=== PATIENT | female | born 1960 | race Caucasian/White ===

== ENCOUNTER → 2017-01-22 | Outpatient (CLI) | payer OTHER ==
[~2017-01-22] MED LIST: SIMV20TA2 PO; lisinopril
[2017-01-22 12:40] LABS: ADD SCAN DIFF NO
[2017-01-22 12:46] LABS: BASOPHILS % 0.3 % (0.0-2.0); EOSINOPHILS # 0.1 10^3/ul (0.0-0.5); EOSINOPHILS % 0.9 % (0.0-7.0); HEMATOCRIT 42.9 % (37.0-47.0); HEMOGLOBIN 14.4 g/dl (12.0-16.0); LYMPHOCYTES # 2.2 10^3/ul (0.8-2.9); LYMPHOCYTES % 21.8 % (15.0-51.0); MEAN CORPUSCULAR HEMOGLOBIN 31.3 pg (29.0-33.0); MEAN CORPUSCULAR HGB CONC 33.6 g/dl (32.0-37.0); MEAN CORPUSCULAR VOLUME 93.3 fl (82.0-101.0); MEAN PLATELET VOLUME 10.3 fl (7.4-10.4); MONOCYTE # 0.4 10^3/ul (0.3-0.9); MONOCYTES % 3.6 % (0.0-11.0); NEUTROPHIL # 7.2 10^3/ul (1.6-7.5); NEUTROPHILS % 73.1 % (39.0-77.0); PLATELET COUNT 328 10^3/UL (140-415); RED CELL DISTRIBUTION WIDTH 12.7 % (11.5-14.5); WHITE BLOOD COUNT 9.9 10^3/ul (4.8-10.8)
== END | disposition home or self-care (01) ==
LOC: LAB 12:05
PROVIDERS: ATTEND Internal Medicine
DX: D68.0 Von Willebrand disease (principal); M19.90 Unspecified osteoarthritis, unspecified site; C18.9 Malignant neoplasm of colon, unspecified
CPT/HCPCS: 85025; 85576

== ENCOUNTER 2017-11-15 08:00 | Outpatient (CLI) | END 2017-11-15 23:59 | disposition home or self-care (01) ==

== ENCOUNTER 2018-11-25 07:59 | Day surgery (SDC) | payer OTHER ==
[2018-11-25] VITALS (11 sets, daily range): BP systolic 93–114; BP diastolic 51–74; PULSE 76–88; RESP 10–21; Ht 162.6 cm; Wt 63.7 kg
[~2018-11-25] VITALS: Ht 162.6 cm; Wt 63.7 kg
[2018-11-25] MEDS ORDERED: AMLO5TAB4 PO (08:28)
[2018-11-25] MEDS ORDERED: FLUT1AER INHALATION (08:31)
[2018-11-25] MEDS ORDERED: ATOR20TA38 PO (08:31)
[2018-11-25] MEDS ORDERED: ZOLP10TA5 PO (08:32)
[2018-11-25] MEDS ORDERED: DULO30CA47 PO (08:32)
[2018-11-25] MEDS ORDERED: TIOT18CA INHALATION (08:33)
[2018-11-25] MEDS ORDERED: TIZA4TAB PO (08:33)
[2018-11-25] MEDS ORDERED: ALBU18HF INHALATION (08:33)
[2018-11-25] MEDS ORDERED: TREX50 PO (08:34)
[2018-11-25] MEDS ORDERED: MONT10TA24 PO (08:35)
[2018-11-25] MEDS ORDERED: LOSA100T15 PO (08:35)
[2018-11-25] MEDS ORDERED: GABA-526 PO (08:36)
[2018-11-25] MEDS ORDERED: MULT-344 PO (08:37)
[2018-11-25] MEDS ORDERED: FOLI-49 PO (08:37)
[2018-11-25] MEDS ORDERED: CHOL100062 PO (08:38)
--- NOTE | 2018-11-25 09:13 | HPN ---
Date/Time of Note Date/Time of Note DATE: 11/25/18 TIME: 09:13 Interval H&P Admission Note Pt. seen H&P reviewed: No system changes VALERIE CAMPBELL DPM Nov 25, 2018 09:13
[2018-11-25] MEDS ORDERED: LIDOCAINE 2% (MDV) 20 ML INJ ONE (09:18)
[2018-11-25] MEDS ORDERED: BUPIVACAINE 0.5% (SDV) 30 ML INJ ONE (09:18)
[2018-11-25] MEDS ORDERED: POLYMYXIN/BACITRACIN 1L IRRIG ONE (09:18)
[2018-11-25] MEDS ORDERED: MIDAZOLAM 1 MG/ML 2 ML INJ ONE ×3 (09:31→09:41)
[2018-11-25] MEDS ORDERED: FENTAnyl 50 MCG/ML VIAL ONE (09:36)
[2018-11-25] MEDS ORDERED: CEFAZOLIN 1 GM INJ ONE (09:39)
[2018-11-25] MEDS ORDERED: PROPOFOL 20 ML ONE (09:45)
--- NOTE | 2018-11-25 09:58 | PREAC ---
Date/Time of Note Date/Time of Note DATE: 11/25/18 TIME: 09:43 Anesthesia Eval and Record Evaluation Time Pre-Procedure Interview DATE: 11/25/18 TIME: 09:43 Age 58 Sex female NPO: 8 hrs Preoperative diagnosis Left dorsal foot mass Planned procedure excision left dorsal foot mass Past Medical History Past Medical History: Includes Cardio: HTN GI: Other (H/O colon cancer with Sx/XRT/Chemo Tx in 2004) Heme: Other (VanWillebrand disease) Surgery & Anesthesia Issues No known issue Meds Anticoagulation: No Beta Abdullahi within 24 hr: Yes Reported Medications Cholecalciferol* (Vitamin D3*) 1,000 Unit Tablet, 1000 UNIT PO DAILY, TAB 11/25/18 Folic Acid* (Folic Acid*) 1 Mg Tablet, 1 MG PO DAILY, TAB 11/25/18 Multivits,Ca,Minerals/Iron/Fa (WOMEN'S DAILY CAPLET) 1 Each Tablet, 1 EACH PO DAILY, TAB 11/25/18 Gabapentin* (Gabapentin*) 600 Mg Tablet, 2400 MG PO QID, #180 TAB 11/25/18 Losartan Potassium* (Losartan Potassium*) 100 Mg Tablet, 100 MG PO DAILY, TAB 11/25/18 Montelukast Sodium* (Montelukast Sodium*) 10 Mg Tablet, 10 MG PO QHS, #30 TAB 11/25/18 Naltrexone Hcl (Trexan) 50 Mg Tab, 100 MG PO DAILY, TAB 11/25/18 Tiotropium [place]* (Spiriva*) 18 Mcg Cap.w.dev, 1 CAP INHALATION DAILY, #30 CAP 11/25/18 Tizanidine Hcl* (Tizanidine Hcl*) 4 Mg Tablet, 4 MG PO Q6H PRN for SPASTICITY, TAB 11/25/18 Albuterol Sulfate* (Ventolin HFA*) 18 Gm Hfa.aer.ad, 2 PUFF INHALATION Q4H, #1 INHALER 11/25/18 Zolpidem Tartrate* (Zolpidem Tartrate*) 10 Mg Tablet, 10 MG PO QHS PRN for INSOMNIA, #30 TAB 11/25/18 Duloxetine Hcl* (Duloxetine Hcl*) 30 Mg Capsule.dr, 30 MG PO DAILY, #30 CAP 11/25/18 Fluticasone-Vilanterol (Breo Ellipta Inhaler) 100-25 Mcg/Actuation Aer.pow.ba, 1 PUFF INHALATION DAILY, #1 INHALER 11/25/18 Atorvastatin Calcium* (Atorvastatin Calcium*) 20 Mg Tablet, 20 MG PO QHS, #30 TAB 11/25/18 Amlodipine Besylate* (Norvasc*) 5 Mg Tablet, 5 MG PO DAILY, TAB 11/25/18 Discontinued Reported Medications [lisinopril] No Conflict Check 10/31/14 Simvastatin (Simvastatin) 20 Mg Tablet, 20 MG PO HS, TAB 06/09/14 Meds reviewed: Yes Allergies Coded Allergies: aspirin (Verified Allergy, Unknown, PT IS A BLEEDER, 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) Allergies Reviewed: Yes Labs/Studies Labs Reviewed: Reviewed by anesthesiologist test: N/A Studies: ECG, CXR Pre-procedure Exam Last vitals Vital Signs Date Temp Pulse Resp B/P (MAP) Pulse Ox O2 O2 Flow FiO2 Time Delivery Rate 11/25/18 98.9 88 18 112/74 98 09:01 (87) Airway: Adequate mouth opening, Adequate thyromental dist Mallampati: Mallampati I Teeth: Abnormal (most teeth missing, some lower teeth - not looses) Lung: Normal Heart: Normal ASA Physical Status ASA physical status: 3 Emergency: None Planned Anesthetic General/MAC: MAC Nerve block: Other (by surgeon) Planned Pain Management Local by surgeon Pre-operative Attestations Prior to commencing anesthesia and surgery, the patient was re-evaluated, there was verification of: *The patient's identity *The results of appropriate recent lab work and preoperative vital signs *The above evaluation not changing prior to induction *Anesthetic plan, risk benefits, alternative and complications discussed with patient/family; questions answered; patient/family understands, accepts and wishes to proceed. Amanda Foley Nov 25, 2018 09:58
[2018-11-25] MEDS ORDERED: METOCLOPRAMIDE 10 MG INJ IV PRN (10:00)
[2018-11-25] MEDS ORDERED: KETOROLAC 15 MG INJ IV PRN (10:00)
[2018-11-25] MEDS ORDERED: hydrALAzine 20 MG INJ IV PRN (10:00)
[2018-11-25] MEDS ORDERED: OXYCODONE/ACETAMINOPHEN (5/325) TAB PO PRN (10:00)
[2018-11-25] MEDS ORDERED: DIPHENHYDRAMINE 50 MG INJ IV PRN (10:00)
[2018-11-25] MEDS ORDERED: ONDANSETRON 4 MG INJ IV PRN (10:00)
[2018-11-25] MEDS ORDERED: FENTAnyl 50 MCG/ML VIAL IV PRN (10:00)
[2018-11-25] MEDS ORDERED: morphine (1 MG/ML) 10ML SYRINGE IV PRN (10:00)
[2018-11-25] MEDS ORDERED: MEPERIDINE 25 MG INJ IV PRN (10:00)
[2018-11-25] MEDS ORDERED: LABETALOL HCL 20MG INJ IV PRN (10:00)
[2018-11-25] MEDS ORDERED: LORAZEPAM 2 MG INJ IV PRN (10:00)
[2018-11-25] MEDS ORDERED: ALBUTEROL 0.083% (NEB) 2.5 MG/3 ML AMP HHN PRN (10:00)
[2018-11-25] MEDS ORDERED: HYDROmorphONE 1 MG/5 ML IV SYRINGE IV PRN (10:00)
--- NOTE | 2018-11-25 10:09 | OPR ---
Date/Time of Note Date/Time of Note DATE: 11/25/18 TIME: 10:05 Operative Report Procedure Date: Nov 25, 2018 Preoperative Diagnosis Left foot painful mass Postoperative Diagnosis Left foot painful mass Operation/Procedure Performed Surgical excision of mass left foot Surgeon see signature line Bank Operations Officer None Anesthesia Type: MAC Estimated Blood Loss: minimal Transfusion none Specimen None; ganglion cyst found which was ruptured Grafts/Implants none Complications none Pt Condition Post Procedure: stable Disposition: PACU Indications This is a pleasant 58-year-old female patient who has been suffering with painful mass left foot for many months getting worse; recommendation was made for surgical excision. Risks and complications of this type of surgery was discussed with patient in great detail. Risks and complications discussed include, but are not limited to, postoperative infection, postoperative pain, chronic pain and disability, hardware failure, malunion, nonunion, delayed union, failure of surgery to correct the problem, need for additional surgical procedures, deep venous thrombosis, gait disturbance, problems with shoegear, limitation of activities, limb loss and loss of life. Patient understands the discussion and agrees to the procedure. An informed consent was obtained, signed and placed in the chart. No guarantee or warrantee was given or implied as to the outcome of the procedure either in verbal or written form. Procedure Description The patient was seen in the preoperative unit. The proposed surgery was discussed with patient in great detail. Risks and complications of this type of surgery was discussed with patient in great detail. Opportunity was given to patient to ask questions and all questions were answered. The patient ack nowledges understanding of the discussion. An informed consent was then obtained, signed and placed in the chart. Patient was taken to the operating room and was placed on the operating table in the supine position. All bony prominences were padded properly. A timeout was called by the circulating nurse. Everyone in the operating room was agreeable to the timeout. The patient was then placed under sedation by the anesthesiologist; I injected the left foot with 6 cc of mixture of 2% lidocaine plain and 0.5% Marcaine plain. The left lower extremity was scrubbed,l prepped, and draped in the usual aseptic manner. Procedure: Surgical excision of left foot mass Attention was directed to the dorsal aspect of the left foot medial side. Small mass was present. A #10 blade was used to make a 3 cm incision directly over the lesion. Careful dissection was made using sharp and blunt dissection to identify the lesion. A small cystic lesion was found which was fluid-filled and immediately ruptured as I was dissecting around it. There was no other cystic lesions or other abnormal mass found. The area was flushed with copious amounts of sterile normal saline. The incision was closed primarily with 5-0 Monocryl in subcuticular stitch pattern. Steri-Strips were applied. Sterile dressing was applied. The patient tolerated procedure and anesthesia well. The patient was transferred to the recovery room with vital signs stable and vascular status intact to left lower extremity. The patient will be discharged home after postoperative monitoring. Postoperative orders were written. Patient will be followed up in the office in 1 week. VALERIE CAMPBELL DPM Nov 25, 2018 10:09
--- NOTE | 2018-11-25 10:27 | PAC ---
Date/Time of Note Date/Time of Note DATE: 11/25/18 TIME: 10:26 Post-Anesthesia Notes Post-Anesthesia Note Last documented vital signs Vital Signs Date Temp Pulse Resp B/P (MAP) Pulse Ox O2 O2 Flow FiO2 Time Delivery Rate 11/25/18 98.5 10:19 11/25/18 88 18 112/74 98 09:01 (87) Activity: WNL Respiratory function: WNL Cardiovascular function: WNL Mental status: Baseline Pain reasonably controlled: Yes Hydration appropriate: Yes Nausea/Vomiting absent: Yes Comments patient doing well, ready to be d/chito to floor / home Amanda Foley Nov 25, 2018 10:27
== END 2018-11-25 11:40 | disposition home or self-care (01) ==
LOC: SDS 07:59
PROVIDERS: ATTEND Podiatrist Foot & Ankle Surgery
DX: M67.472 Ganglion, left ankle and foot (principal); I10 Essential (primary) hypertension
CPT/HCPCS: J0690; J2250; J3010; L3260

== ENCOUNTER 2019-03-02 10:17 | Day surgery (SDC) | payer OTHER ==
[2019-03-02] VITALS (13 sets, daily range): BP systolic 100–142; BP diastolic 65–82; PULSE 80–98; RESP 12–27
[~2019-03-02 10:17] MED LIST changes: +ALBU18HF INHALATION; +AMLO5TAB4 PO; +ATOR20TA38 PO; +CHOL100062 PO; +DULO30CA47 PO; +FLUT1AER INHALATION; +FOLI-49 PO; +GABA-526 PO; +LOSA100T15 PO; +MONT10TA24 PO; +MULT-344 PO; -SIMV20TA2 PO; +TIOT18CA INHALATION; +TIZA4TAB PO; +TREX50 PO; +ZOLP10TA5 PO; -lisinopril
[2019-03-02] MEDS: DESMOPRESSIN 12 MCG in SOD CHLORIDE 0.9% 50 ML IV ONE ×2 (11:36→11:57)
--- NOTE | 2019-03-02 13:19 | PREAC ---
Date/Time of Note Date/Time of Note DATE: 03/02/19 TIME: 13:17 Anesthesia Eval and Record Evaluation Time Pre-Procedure Interview DATE: 03/02/19 TIME: 13:17 Age 58 Sex female NPO: 8 hrs Preoperative diagnosis Change in bowel habits Planned procedure Colonoscopy Past Medical History Past Medical History: Includes Cardio: HTN, Dyslipidemia Pulm: COPD, Sleep Apnea, Asthma GI: Morbid obesity Heme: Anemia, Coagulation disorder Surgery & Anesthesia Issues No known issue Meds Anticoagulation: No Beta Abdullahi within 24 hr: No Reason Beta Abdullahi not given: Pt. not on B-Abdullahi Reported Medications Cholecalciferol* (Vitamin D3*) 1,000 Unit Tablet, 1000 UNIT PO DAILY, TAB 11/25/18 Folic Acid* (Folic Acid*) 1 Mg Tablet, 1 MG PO DAILY, TAB 11/25/18 Multivits,Ca,Minerals/Iron/Fa (WOMEN'S DAILY CAPLET) 1 Each Tablet, 1 EACH PO DAILY, TAB 11/25/18 Gabapentin* (Gabapentin*) 600 Mg Tablet, 2400 MG PO QID, #180 TAB 11/25/18 Losartan Potassium* (Losartan Potassium*) 100 Mg Tablet, 100 MG PO DAILY, TAB 11/25/18 Montelukast Sodium* (Montelukast Sodium*) 10 Mg Tablet, 10 MG PO QHS, #30 TAB 11/25/18 Naltrexone Hcl (Trexan) 50 Mg Tab, 100 MG PO DAILY, TAB 11/25/18 Tiotropium [place]* (Spiriva*) 18 Mcg Cap.w.dev, 1 CAP INHALATION DAILY, #30 CAP 11/25/18 Tizanidine Hcl* (Tizanidine Hcl*) 4 Mg Tablet, 4 MG PO Q6H PRN for SPASTICITY, TAB 11/25/18 Albuterol Sulfate* (Ventolin HFA*) 18 Gm Hfa.aer.ad, 2 PUFF INHALATION Q4H, #1 INHALER 11/25/18 Zolpidem Tartrate* (Zolpidem Tartrate*) 10 Mg Tablet, 10 MG PO QHS PRN for INSOMNIA, #30 TAB 11/25/18 Duloxetine Hcl* (Duloxetine Hcl*) 30 Mg Capsule.dr, 30 MG PO DAILY, #30 CAP 11/25/18 Fluticasone-Vilanterol (Breo Ellipta Inhaler) 100-25 Mcg/Actuation Aer.pow.ba, 1 PUFF INHALATION DAILY, #1 INHALER 11/25/18 Atorvastatin Calcium* (Atorvastatin Calcium*) 20 Mg Tablet, 20 MG PO QHS, #30 TAB 11/25/18 Amlodipine Besylate* (Norvasc*) 5 Mg Tablet, 5 MG PO DAILY, TAB 11/25/18 Meds reviewed: Yes Allergies Coded Allergies: aspirin (Verified Allergy, Unknown, PT IS A BLEEDER, 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) Allergies Reviewed: Yes Labs/Studies Labs Reviewed: Reviewed by anesthesiologist test: N/A Studies: ECG Pre-procedure Exam Last vitals Vital Signs Date Temp Pulse Resp B/P (MAP) Pulse Ox O2 O2 Flow FiO2 Time Delivery Rate 03/02/19 96 20 117/65 98 12:21 (82) 03/02/19 98.3 11:50 Airway: Adequate mouth opening, Adequate thyromental dist Mallampati: Mallampati II Teeth: Normal Lung: Normal Heart: Normal ASA Physical Status ASA physical status: 3 Emergency: None Planned Anesthetic General/MAC: MAC Planned Pain Management Parenteral pain med Pre-operative Attestations Prior to commencing anesthesia and surgery, the patient was re-evaluated, there was verification of: *The patient's identity *The results of appropriate recent lab work and preoperative vital signs *The above evaluation not changing prior to induction *Anesthetic plan, risk benefits, alternative and complications discussed with patient/family; questions answered; patient/family understands, accepts and wishes to proceed. FARIDA VENCES MD March 02, 2019 13:19
[2019-03-02] MEDS ORDERED: LIDOCAINE 2% (SDV) 5 ML INJ ONE (13:26)
[2019-03-02] MEDS ORDERED: PROPOFOL 60 ML ONE (13:26)
[2019-03-02] MEDS ORDERED: PROPOFOL 20 ML ONE (13:54)
--- NOTE | 2019-03-02 14:13 | PAC ---
Date/Time of Note Date/Time of Note DATE: 03/02/19 TIME: 14:12 Post-Anesthesia Notes Post-Anesthesia Note Last documented vital signs Vital Signs Date Temp Pulse Resp B/P (MAP) Pulse Ox O2 O2 Flow FiO2 Time Delivery Rate 03/02/19 96 20 117/65 98 12:21 (82) 03/02/19 98.3 11:50 Activity: WNL Respiratory function: WNL Cardiovascular function: WNL Mental status: Baseline Pain reasonably controlled: Yes Hydration appropriate: Yes Nausea/Vomiting absent: Yes Comments BP:122/67, P:78, Spo2:100%, T:98,8 FARIDA VENCES MD March 02, 2019 14:13
== END 2019-03-02 14:44 | disposition home or self-care (01) ==
LOC: GIL 10:17
PROVIDERS: ATTEND Internal Medicine Gastroenterology
DX: D12.5 Benign neoplasm of sigmoid colon (principal); K63.5 Polyp of colon; K64.4 Residual hemorrhoidal skin tags
CPT/HCPCS: 45380; J2597; Z7610; 88305